=== PATIENT | female | born 1960 | race Caucasian/White ===

== ENCOUNTER 2016-09-02 20:43 | Emergency (ER) | payer OTHER ==
[~2016-09-02] VITALS: Ht 165.1 cm; Wt 50.0 kg
[~2016-09-02 20:43] MED LIST: AMBI10TA PO; DICY1TAB26 PO; LOMO PO; SERT50 PO; TYLE3 PO; VALI5TAB PO; ZOFR4TAB3 SL
[2016-09-02 20:45] VITALS: BP 120/72; PULSE 96; RESP 18; TEMP 98.1; O2SAT 96
== END 2016-09-03 00:02 | disposition left against medical advice (07) ==
LOC: NED 20:43
DX: B99.9 Unspecified infectious disease (principal)
CPT/HCPCS: 99281